=== PATIENT | female | born 1960 | race Caucasian/White ===

== ENCOUNTER 2019-03-01 06:41 | Day surgery (SDC) | payer MEDICAID ==
[2019-03-01] MEDS ORDERED: Bupivacaine 0.25% 10 ML SDV ONE ×2 (06:48→06:57)
[2019-03-01] MEDS ORDERED: Lidocaine 1% 30 ML SDV ONE ×2 (06:48→06:57)
[2019-03-01] MEDS ORDERED: Lidocaine 1%/Sod Bicarbonate in NS 8.4% 1 ML Syringe IDERM PRN (07:00)
[2019-03-01] MEDS ORDERED: Lactated Ringers 1,000 ML IV SCH (07:00)
[2019-03-01] MEDS ORDERED: Sodium Chloride 0.9% 10 ML Syringe FLUSH PRN (07:00)
[2019-03-01] MEDS ORDERED: ceFAZolin 1 GM Vial ONE (07:06)
--- NOTE | 2019-03-06 15:34 | PCM.OPNOTE ---
- General Post-Op/Procedure Note Date of Surgery/Procedure: 03/01/19 Operative Procedure(s): right carpal tunnel release Pre Op Diagnosis: right median nerve compression neuropathy Post-Op Diagnosis: Same Anesthesia Technique: Local Primary Surgeon: Nate Lopez [employer] Lacrosse Coach: Gianna De La O in mLs: 5 Complications: None Condition: Good
--- NOTE | 2019-03-06 15:50 | OR ---
DATE OF OPERATION: 03/01/2019 SURGEON: Nate Lopez MD OPERATION PERFORMED: Right carpal tunnel release. PREOPERATIVE DIAGNOSIS: Right median nerve compression neuropathy. POSTOPERATIVE DIAGNOSIS: Right median nerve compression neuropathy. ANESTHESIA: Local only. ANESTHESIA PROVIDER: None. LEHR TENDER: Gianna De La O PA-C. ESTIMATED BLOOD LOSS: Less than 5 mL. COMPLICATIONS: None. CONDITION: Stable. DESCRIPTION OF PROCEDURE: The patient was identified in the preop holding area. Proper site was marked and identified by the surgeon. The patient was taken back to the operating theater where after adequate anesthesia, the patient's right upper extremity was sterilely prepped and draped in the usual sterile fashion. OR time-out was performed. The patient did not receive antibiotics and it is not indicated for soft tissue hand procedure. At this time, the right upper extremity was exsanguinated and an Esmarch was used as a tourniquet on the forearm. At this time, using 1% lidocaine without epinephrine and 0.25% Marcaine without epinephrine, the palmar cutaneous branch of the median nerve was anesthetized and then the incisional site was anesthetized using Fried cardinal line and ulnar border of the fourth digit as reference. Once this had set up, an incision was made. Blunt dissection was taken down to the palmar cutaneous fascia. Palmar cutaneous fascia was incised with a Grimes blade. At this time, the transverse carpal ligament was identified. A small rent was made in the transverse carpal ligament with a Grimes blade under direct visualization. Resection of the transverse carpal ligament was done distally using tenotomy scissors making sure to stop short of the palmar arch. At this time, attention was turned proximally after it was found to be adequately released. Using the tenotomy scissors keeping the tips ulnar to protect the palmar cutaneous branch of the median nerve, the superficial forearm fascia as well as the transverse carpal ligament were resected proximally. It was found to be adequate release both proximally and distally. At this time, adequate saline was irrigated through the wound. 4-0 nylon sutures were used closure of the skin. The patient was placed in a sterile soft dressing and sent to PACU in stable condition. MMODAL /[id number]
== END 2019-03-01 08:15 | disposition home or self-care (01) ==
LOC: JD.SDS 06:41
PROVIDERS: ATTEND Orthopaedic Surgery
DX: G56.11 Other lesions of median nerve, right upper limb (principal); J44.9 Chronic obstructive pulmonary disease, unspecified; M19.90 Unspecified osteoarthritis, unspecified site; K21.9 Gastro-esophageal reflux disease without esophagitis; E78.00 Pure hypercholesterolemia, unspecified; E78.5 Hyperlipidemia, unspecified; F41.9 Anxiety disorder, unspecified; F32.9 Major depressive disorder, single episode, unspecified; F17.210 Nicotine dependence, cigarettes, uncomplicated; Z79.899 Other long term (current) drug therapy
CPT/HCPCS: 64721; J0690; J2001; J3490; J7120

== ENCOUNTER 2021-09-11 10:21 | Day surgery (SDC) | payer MEDICARE, MEDICAID ==
[~2021-09-11 10:21] MED LIST: Lactated Ringers 1,000 ML IV SCH; Lidocaine 1%/Sod Bicarbonate in NS 8.4% 1 ML Syringe IDERM PRN; Sodium Chloride 0.9% 10 ML Syringe FLUSH PRN; Sodium Chloride 0.9% 10 ML Syringe FLUSH SCH
[2021-09-11] MEDS ORDERED: Propofol 200 MG/20 ML SDV ONE ×3 (10:51→11:27)
== END 2021-09-11 12:27 | disposition home or self-care (01) ==
LOC: JD.SDS 10:21
PROVIDERS: ATTEND Surgery
DX: Z12.11 Encounter for screening for malignant neoplasm of colon (principal); K57.30 Diverticulosis of large intestine without perforation or abscess without bleeding; K64.8 Other hemorrhoids; F41.9 Anxiety disorder, unspecified; J44.9 Chronic obstructive pulmonary disease, unspecified; F32.A Depression, unspecified; K21.9 Gastro-esophageal reflux disease without esophagitis; G47.33 Obstructive sleep apnea (adult) (pediatric); E78.00 Pure hypercholesterolemia, unspecified; I10 Essential (primary) hypertension; E55.9 Vitamin D deficiency, unspecified; F17.210 Nicotine dependence, cigarettes, uncomplicated; Z79.899 Other long term (current) drug therapy; Z90.49 Acquired absence of other specified parts of digestive tract
CPT/HCPCS: 45385; 88305; J2704; J7120; 00812

== ENCOUNTER 2021-11-04 08:43 | Emergency (ER) | payer MEDICARE, MEDICAID ==
[2021-11-04] MEDS ORDERED: Aspirin 81 MG Tab.Chew PO ONE (10:40)
[2021-11-04] MEDS ORDERED: Iopamidol 755 Mg/ML 100 ML Bottle IVPUSH ONE (12:35)
[2021-11-04] MEDS ORDERED: Sodium Chloride 0.9% 10 ML Syringe FLUSH PRN (12:35)
[2021-11-04] MEDS ORDERED: Sodium Chloride 0.9% 100 ML IV SCH (12:45)
== END 2021-11-04 16:45 | disposition home or self-care (01) ==
LOC: JD.ED 08:43
DX: R07.9 Chest pain, unspecified (principal); E78.00 Pure hypercholesterolemia, unspecified; I10 Essential (primary) hypertension; K21.9 Gastro-esophageal reflux disease without esophagitis; J44.9 Chronic obstructive pulmonary disease, unspecified; F17.210 Nicotine dependence, cigarettes, uncomplicated; Z79.899 Other long term (current) drug therapy; Z20.822 Contact with and (suspected) exposure to COVID-19
CPT/HCPCS: 36415; 71045; 71275; 80053; 84484; 85025; 85379; 85610; 85730; 93005; 99285; A9270; J3490; Q9967; U0002

== ENCOUNTER 2022-04-05 15:59 | Emergency (ER) | payer MEDICARE, MEDICAID ==
[2022-04-05] MEDS ORDERED: Dextrose 5%-0.9% NaCl 1,000 ML IV SCH (17:15)
[2022-04-05] MEDS ORDERED: cefTRIAXone 2 GM in Sodium Chloride 0.9% 100 ML IV ONE (17:48)
[2022-04-05] MEDS ORDERED: Doxycycline Monohydrate 100 MG Cap PO ONE (19:11)
== END 2022-04-05 20:10 | disposition home or self-care (01) ==
LOC: JD.ED 15:59
DX: T81.31XA Disruption of external operation (surgical) wound, not elsewhere classified, initial encounter (principal); E78.00 Pure hypercholesterolemia, unspecified; I10 Essential (primary) hypertension; Z79.899 Other long term (current) drug therapy; Z90.49 Acquired absence of other specified parts of digestive tract
CPT/HCPCS: 36415; 71045; 80053; 81001; 82553; 83735; 83880; 85025; 85610; 85652; 85730; 86140; 87040; 87070; 87075; 87077; 87086; 87186; 87205; 93005; 96361; 96365; 99284; A9270; J0696; J7042

== ENCOUNTER 2024-07-13 09:29 | Emergency (ER) | payer MEDICARE, MEDICAID | END 2024-07-13 11:25 | disposition home or self-care (01) | LOC: JD.ED 09:29 | DX: M79.605 Pain in left leg (principal); E78.00 Pure hypercholesterolemia, unspecified; I10 Essential (primary) hypertension; K21.9 Gastro-esophageal reflux disease without esophagitis; Z79.899 Other long term (current) drug therapy; Z86.16 Personal history of COVID-19; Z90.49 Acquired absence of other specified parts of digestive tract; Z90.710 Acquired absence of both cervix and uterus; Z87.891 Personal history of nicotine dependence | CPT/HCPCS: 93971-26-LT; 93971-LT; 99283 ==

== ENCOUNTER 2024-08-22 07:12 | Day surgery (SDC) | payer MEDICARE, MEDICAID ==
[~2024-08-22 07:12] MED LIST changes: -Lactated Ringers 1,000 ML IV SCH; -Lidocaine 1%/Sod Bicarbonate in NS 8.4% 1 ML Syringe IDERM PRN
[2024-08-22] MEDS: Lactated Ringers 1,000 ML IV SCH (07:30)
[2024-08-22] MEDS ORDERED: Propofol 200 MG/20 ML SDV ONE ×2 (07:46→07:58)
[2024-08-22] MEDS ORDERED: Lidocaine 1% 4 ML ONE (07:46)
== END 2024-08-22 09:05 | disposition home or self-care (01) ==
LOC: JD.SDS 07:12
PROVIDERS: ATTEND Surgery
DX: Z12.11 Encounter for screening for malignant neoplasm of colon (principal); R19.5 Other fecal abnormalities; D12.4 Benign neoplasm of descending colon; K21.9 Gastro-esophageal reflux disease without esophagitis; J44.89 Other specified chronic obstructive pulmonary disease; I25.10 Atherosclerotic heart disease of native coronary artery without angina pectoris; I10 Essential (primary) hypertension; E78.00 Pure hypercholesterolemia, unspecified; G47.00 Insomnia, unspecified; F17.200 Nicotine dependence, unspecified, uncomplicated; Z79.82 Long term (current) use of aspirin; Z79.899 Other long term (current) drug therapy
CPT/HCPCS: 00811; 45380; 88305; J2003; J2704; J7120